=== PATIENT | male | born 1965 | race Caucasian/White ===

== ENCOUNTER 2016-08-11 13:56 | Emergency (ER) | payer OTHER ==
[2016-08-11 14:00] VITALS: BP 154/94; PULSE 96; TEMP 98; BMI 25.5
[2016-08-11] MEDS ORDERED: IBUPROFEN 600 MG TABLET (FP) PO ONE ×2 (15:57→16:00)
--- NOTE | 2016-08-11 16:01 | PDOC ---
History of Present Illness - General Chief Complaint: Injury Stated Complaint: FALL, PAIN Time Seen by Provider: 08/11/16 15:41 History Source: Patient Exam Limitations: No Limitations - History of Present Illness Initial Comments: 08/11/16 15:58 Pt. on fasttrack tracker noted after pt here for 1 hr 43 minutes not on this tracker prior My chief complaint: Fall this morning hitting her left ribs left rib pain History of present illness: Patient is a 50-year-old male with no significant medical problems here today after patient fell going down stairs at 5 AM to take out the garbage due to his slipper falling off his foot causing him to fall into the stairs hitting the his left mid lateral rib area. Patient reports that area continues to be painful, with no shortness of breath pain is worse with deep breathing or movement and is currently an 8 out of 10. Patient has not taken anything for pain. Patient denies hitting his head or any other injuries. Occurred: reports: this morning Severity: reports: moderate Pain Location: reports: other (left lateral mid rib area) Method of Injury: Yes: fall Modifying Factors: improves with: immobilization Loss of Consciousness: no loss of consciousness Associated Symptoms (Fall): denies symptoms Past History - Past Medical History Allergies/Adverse Reactions: Allergies Allergy/AdvReac Type Severity Reaction Status Date / Time esomeprazole magnesium Allergy Verified 08/11/16 14:00 [From Nexium] Home Medications: Ambulatory Orders No Home Medications 0 dose .ROUTE UTDICT 11/21/12 Oxycodone HCl/Acetaminophen [Percocet 5-325 mg Tablet] 1 tab PO HS PRN #5 tablet MDD 1 08/11/16 - Surgical History Appendectomy: Yes - Psycho/Social/Smoking Cessation Hx Suicidal Ideation: No Smoking Status: No Smoking History: Never smoked Number of Cigarettes Smoked Daily: 0 Information on smoking cessation initiated: No Hx Alcohol Use: Yes Drug/Substance Use Hx: No Substance Use Type: Alcohol Hx Substance Use Treatment: No Review of Systems - Review of Systems Able to Perform ROS?: Yes Constitutional: No: Symptoms Reported HEENTM: No: Symptoms Reported Respiratory: No: Symptoms reported Cardiac (ROS): No: Symptoms Reported ABD/GI: No: Symptoms Reported : No: Symptoms Reported Musculoskeletal: Yes: Joint Pain (left mid lateral rib pain ). No: Joint Swelling Integumentary: No: Symptoms Reported Neurological: No: Symptoms reported *Physical Exam - Vital Signs Last Vital Signs Temp Pulse Resp BP Pulse Ox 98 F 96 H 18 154/94 97 08/11/16 13:57 08/11/16 13:57 08/11/16 13:57 08/11/16 13:57 08/11/16 13:57 - Physical Exam General Appearance: Yes: Appropriately Dressed Respiratory/Chest: positive: Lungs Clear, Normal Breath Sounds. negative: Chest Tender, Respiratory Distress Cardiovascular: positive: Regular Rhythm, Regular Rate, S1, S2 Musculoskeletal: positive: Other (left mid lateral rib pain ). negative: CVA Tenderness, CVA Tenderness (R), CVA Tenderness (L), Vertebral Tenderness Extremity: positive: Normal Capillary Refill, Normal Inspection, Normal Range of Motion Integumentary: positive: Normal Color Neurologic: positive: Fully Oriented, Alert, Normal Response, Respond to painful stimul, Responsive. negative: Numbness, Sensory Deficit (left lateral torso ) Medical Decision Making - Medical Decision Making 08/11/16 16:00 Patient is a 50-year-old male with no significant medical problems here today after patient fell going down stairs at 5 AM to take out the garbage due to his slipper falling off his foot causing him to fall into the stairs hitting the his left mid lateral rib area. Patient reports that area continues to be painful , with no shortness of breath pain is worse with deep breathing or movement and is currently an 8 out of 10. Patient has not taken anything for pain. Patient denies hitting his head or any other injuries. 08/11/16 16:02 Left mid lateral rib pain r/o fracture left rib RIB CONTUSION left lateral PLAN: xray left rib series no fracture noted ibuprofen 600 mg po now 08/11/16 16:03 08/11/16 16:49 08/11/16 16:58 percocet 5mg/325 mg po hs prn pain #5 *DC/Admit/Observation/Transfer Diagnosis at time of Disposition: Fall (on) (from) other stairs and steps, sequela Contusion of rib on left side Qualifiers: Encounter type: initial encounter Qualified Code(s): S20.212A - Contusion of left front wall of thorax, initial encounter - Discharge Dispostion Disposition: HOME Condition at time of disposition: Stable - Prescriptions Prescriptions: Oxycodone HCl/Acetaminophen [Percocet 5-325 mg Tablet] 1 tab PO HS PRN #5 tablet MDD 1 PRN Reason: Severe Pain - Patient Instructions Additional Instructions: Avoid any strenuous activities or sudden movements or exercise if you must cough hold a pillow in front of you than cough Return to emergency room if symptoms worsen any difficulty breathing Follow up with your primary care provider within the next few days Take ibuprofen as needed as directed by principal electrical engineer for pain Patient voiced understanding of discharge instructions and all questions were answered
== END 2016-08-11 17:09 | disposition home or self-care (01) ==
LOC: JERFT 13:56 → JER 13:56 → JERFT 17:09
DX: S20.212A Contusion of left front wall of thorax, initial encounter (principal); W10.8XXA Fall (on) (from) other stairs and steps, initial encounter; Y93.E9 Activity, other interior property and clothing maintenance; Y92.038 Other place in apartment as the place of occurrence of the external cause
CPT/HCPCS: 71101-TC; 99281-25

== ENCOUNTER 2016-08-15 21:42 | Emergency (ER) | payer OTHER ==
[2016-08-15 21:49] VITALS: BMI 25.5
[2016-08-15] MEDS ORDERED: IBUPROFEN 400 MG TABLET (FP) PO ONE ×2 (23:15→23:45)
[2016-08-15] MEDS ORDERED: CYCLOBENZAPRINE HCL 10 MG TABLET (FP) PO ONE (23:15)
[2016-08-15] MEDS ORDERED: ACETAMINOPHEN 325 MG TABLET (FP) PO ONE (23:15)
--- NOTE | 2016-08-15 23:16 | PDOC ---
History of Present Illness - General History Source: Patient Exam Limitations: No Limitations - History of Present Illness Initial Comments: 08/16/16 01:14 The patient is a 50 year old male with no significant past medical history who presents to the ED with 4 days of persistent pain to the lower rib field from mid clavicular line to mid axillary line. Patient was seen on 08/11 for left rib cage pain s/p fall, where he had an x-ray that revealed no fracture noted. He was discharged with instructions to come back if pain persisted. Patient returns today for persistent pain to the lower rib field from mid clavicular line to mid axillary line. Pain does not radiate. His pain worsens with changes in position, sitting, twisting, or lying supine. States that he attempted to apply ice to the area and take pain medications with minimal to no relief. The patient denies fever, chills, cough, SOB, chest pain, and palpitations. The patient denies nausea, vomiting, and diarrhea. Allergies: esomeprazole magnesium Social History: No alcohol, tobacco, or drug use reported. Past Surgical History: appendectomy PCP: None reported <Zee Moreno - Last Filed: 08/16/16 02:45> <Neal Pelaez - Last Filed: 08/16/16 02:50> - General Chief Complaint: Back Pain Stated Complaint: PAIN Past History <Zee Moreno - Last Filed: 08/16/16 02:45> - Surgical History Appendectomy: Yes - Psycho/Social/Smoking Cessation Hx Anxiety: No Suicidal Ideation: No Smoking Status: No Smoking History: Smoker current status UNK Have you smoked in the past 12 months: No Number of Cigarettes Smoked Daily: 0 Information on smoking cessation initiated: No Hx Alcohol Use: No Drug/Substance Use Hx: No Substance Use Type: Alcohol Hx Substance Use Treatment: No <Neal Pelaez - Last Filed: 08/16/16 02:50> - Past Medical History Allergies/Adverse Reactions: Allergies Allergy/AdvReac Type Severity Reaction Status Date / Time esomeprazole magnesium Allergy Verified 08/15/16 21:49 [From Nexium] Home Medications: Ambulatory Orders No Home Medications 0 dose .ROUTE UTDICT 11/21/12 Ibuprofen 800 mg PO TID PRN #20 tablet 08/16/16 Review of Systems - Review of Systems Able to Perform ROS?: Yes Comments:: 08/16/16 01:14 GENERAL/CONSTITUTIONAL: No fever or chills. No weakness. HEAD, EYES, EARS, NOSE AND THROAT: No change in vision. No ear pain or discharge. No sore throat. CARDIOVASCULAR: No chest pain or shortness of breath. RESPIRATORY: No cough, wheezing, or hemoptysis. GASTROINTESTINAL: No nausea, vomiting, diarrhea or constipation. GENITOURINARY: No dysuria, frequency, or change in urination. MUSCULOSKELETAL: +pain to the lower rib field from mid clavicular line to mid axillary line. No joint or muscle swelling. No neck or back pain. SKIN: No rash NEUROLOGIC: No headache, vertigo, loss of consciousness, or change in strength/ sensation. ENDOCRINE: No increased thirst. No abnormal weight change. HEMATOLOGIC/LYMPHATIC: No anemia, easy bleeding, or history of blood clots. ALLERGIC/IMMUNOLOGIC: No hives or skin allergy. <Zee Moreno - Last Filed: 08/16/16 02:45> *Physical Exam - Vital Signs Last Vital Signs Temp Pulse Resp BP Pulse Ox 98.2 F 70 18 154/102 99 08/15/16 21:46 08/15/16 21:46 08/15/16 21:46 08/15/16 21:46 08/15/16 21:46 - Physical Exam Comments: 08/16/16 01:14 GENERAL: Awake, alert, and fully oriented, in no acute distress HEAD: No signs of trauma EYES: PERRLA, EOMI, sclera anicteric, conjunctiva clear ENT: Auricles normal inspection, hearing grossly normal, nares patent, oropharynx clear without exudates. Moist mucosa NECK: Normal ROM, supple, no lymphadenopathy, JVD, or masses LUNGS: Patient moving air comfortably. Breath sounds equal, clear to auscultation bilaterally. No wheezes, and no crackles HEART: Regular rate and rhythm, normal S1 and S2, no murmurs, rubs or gallops ABDOMEN: Soft, nontender, normoactive bowel sounds. No guarding, no rebound. No masses EXTREMITIES: Normal range of motion, no edema. No clubbing or cyanosis. No cords, erythema, or tenderness MUSCULOSKELETAL: Pain to palpation to the lower rib field from mid clavicular line to mid axillary line. No crepitus, no gross deformity, no bruising, no ecchymosis, no edema, no erythema, no splinting. NEUROLOGICAL: Cranial nerves II through XII grossly intact. Normal speech, normal gait SKIN: Warm, Dry, normal turgor, no rashes or lesions noted. <Zee Moreno - Last Filed: 08/16/16 02:45> - Vital Signs Last Vital Signs Temp Pulse Resp BP Pulse Ox 98.2 F 70 18 154/102 99 08/15/16 21:46 08/15/16 21:46 08/15/16 21:46 08/15/16 21:46 08/15/16 21:46 <Neal Pelaez - Last Filed: 08/16/16 02:50> ED Treatment Course - RADIOLOGY Radiograph Interpretation: 08/16/16 02:45 EXAM: CT chest without contrast and CT abdomen without contrast Reviewed by Imaging mission analyst: FINDINGS: Images were obtained from the lung apices to the aortoiliac bifurcation. Chest: Negative for thoracic/pulmonary injury. No pneumothorax or pneumomediastinum. No pulmonary infiltrates/ contusions. No pleural effusions. Thoracic cage is normal. Abdomen: Generally limited for trauma without intravenous contrast. The spleen appears intact within the range of resolution of noncontrast CT. Fatty liver. No liver injury. Normal pancreas. Normal gallbladder. Normal adrenal glands. Normal kidneys. Visualized portion of the bowel is normal. No upper abdominal free fluid or blood. - Medications Given in the ED: ED Medications Discontinued Medications Generic Name Dose Route Start Last Admin Trade Name Freq PRN Reason Stop Dose Admin Acetaminophen 975 mg 08/15/16 23:15 08/15/16 23:49 Tylenol - PO 08/15/16 23:16 975 mg ONCE ONE Administration Cyclobenzaprine HCl 10 mg 08/15/16 23:15 08/15/16 23:49 Flexeril - PO 08/15/16 23:16 10 mg ONCE ONE Administration Ibuprofen 800 mg 08/15/16 23:15 08/15/16 23:49 Motrin - PO 08/15/16 23:16 800 mg ONCE ONE Administration <Zee Moreno - Last Filed: 08/16/16 02:45> Medical Decision Making - Medical Decision Making 08/16/16 00:32 50yo M with persistent LUQ/LLL pain 4 days s/p mechanical slip and fall. He appears comfortable and has normal vitals and PE. He will be given CT chest to include the spleen however, splenic inujury is very unlikely given his clinical picture and the mechanism of injury. Will encourage close follow up; will give incentive spirometer. Also, will encourage adequate analgesia with appropriate weight based NSAIDs. No narcotics indicated. 08/16/16 02:43 CT is negative; spleen is unremarkable in this noncontrast study. He is given instruction to follow up with the PMD within 24 hours. <Neal Pelaez - Last Filed: 08/16/16 02:50> *DC/Admit/Observation/Transfer - Attestations Scribe Attestion: 08/16/16 01:14 Documentation prepared by Zee Moreno, acting as medical anthropologist for Neal Pelaez MD, MD <Zee Moreno - Last Filed: 08/16/16 02:45> - Discharge Dispostion Admit: No Decision to Admit order Date/Time: 08/16/16 00:28 - Attestations Physician Attestion: 08/16/16 00:32 08/16/16 00:32 I, Dr. Neal Pelaez MD, attest that this document has been prepared under my direction and personally reviewed by me in its entirety. I further attest, that it accurately reflects all work, treatment, procedures and medical decision -making performed by me. <Neal Pelaez - Last Filed: 08/16/16 02:50> Diagnosis at time of Disposition: Contusion of rib Qualifiers: Encounter type: subsequent encounter Laterality: left Qualified Code(s): S20.212D - Contusion of left front wall of thorax, subsequent encounter - Discharge Dispostion Disposition: HOME Condition at time of disposition: Guarded - Prescriptions Prescriptions: Ibuprofen 800 mg PO TID PRN #20 tablet PRN Reason: Pain - Referrals Referrals: STAFF,NOT ON [Primary Care Provider] - - Patient Instructions Additional Instructions: Please follow up with your PMD within the next 48 hours for reevaluation and if there is any change otherwise in your symptoms, please return immediately to the ED.
[2016-08-15] MEDS ORDERED: ACETAMINOPHEN 325 MG TABLET (FP) ONE (23:44)
[2016-08-15] MEDS ORDERED: CYCLOBENZAPRINE HCL 10 MG TABLET (FP) ONE (23:45)
[2016-08-16 02:59] VITALS: BP 151/87; PULSE 72; TEMP 97.9
== END 2016-08-16 02:58 | disposition home or self-care (01) ==
LOC: SUPCPDRO 21:42 → JER 21:42
DX: S20.212D Contusion of left front wall of thorax, subsequent encounter (principal); W18.39XD Other fall on same level, subsequent encounter; Y92.9 Unspecified place or not applicable
CPT/HCPCS: 71250-TC; 99281-25

== ENCOUNTER 2019-05-15 09:36 | Emergency (ER) | payer OTHER ==
[2019-05-15 09:45] VITALS: BP 118/71; PULSE 87; TEMP 99.6; BMI 22.9
--- NOTE | 2019-05-15 10:22 | PDOC ---
History of Present Illness - General Chief Complaint: Cold Symptoms Stated Complaint: SORE THROAT/COUGHING/FEVER Time Seen by Provider: 05/15/19 09:48 History Source: Patient Exam Limitations: No Limitations - History of Present Illness Initial Comments: 05/15/19 10:10 Patient is a 53-year-old male with history of GERD and psychiatric history, who presents to the ED with complaint of cough, sore throat, fever, nausea, vomiting for the last 8 days. He states he only vomited the first and second days but still feels nauseated. He states his T-max was 102F. He denies any shortness of breath. He does admit to cough with some sputum production. Past History - Past Medical History Allergies/Adverse Reactions: Allergies Allergy/AdvReac Type Severity Reaction Status Date / Time esomeprazole magnesium Allergy Verified 05/15/19 09:42 [From Nexium] Home Medications: Ambulatory Orders NK [No Known Home Medication] 05/15/19 COPD: No - Surgical History Appendectomy: Yes - Immunization History Immunization Up to Date: Yes - Psycho Social/Smoking Cessation Hx Smoking Status: No Smoking History: Never smoked Have you smoked in the past 12 months: No Number of Cigarettes Smoked Daily: 0 Hx Alcohol Use: No Drug/Substance Use Hx: No Substance Use Type: Alcohol Hx Substance Use Treatment: No Review of Systems - Review of Systems Comments:: 05/15/19 10:22 - Review of Systems Able to Perform ROS?: Yes Constitutional: No: Night Sweats, Weakness, Positive: Fever, Chills, Loss of Appetite HEENTM: No: Eye Pain, Vision changes, Ear Pain, Throat Swelling, Mouth Pain, Difficulty Swallowing, Positive: Throat Pain Respiratory: No: Shortness of Breath, Wheezing, Sputum Production, Positive: Cough Cardiac (ROS): No: Chest Pain, Chest Tightness, Palpitations, Irregular Heart Beat, Edema ABD/GI: No: Abdominal Pain, Diarrhea, Positive: Nausea, Vomiting : No Dysuria, No Hematuria, No Frequency, No Urgency Musculoskeletal: No: Muscle Pain, Back Pain, Joint Pain, Muscle Weakness, Neck Pain Integumentary: No: Lesions, Rash Neurological: No: Headache, Numbness, Tingling, Weakness, Speech Difficulties *Physical Exam - Vital Signs Last Vital Signs Temp Pulse Resp BP Pulse Ox 99.6 F 87 18 118/71 100 05/15/19 09:43 05/15/19 09:43 05/15/19 09:43 05/15/19 09:43 05/15/19 09:43 - Physical Exam 05/15/19 10:25 - Physical Exam General Appearance: Nourished, Appropriately Dressed, Mild distress secondary to general unwell feeling HEENT: EOMI, Normal Voice, No Pharyngeal Erythema, No Muffled/Hoarse voice, No Tonsillar Exudate, No Tonsillar Erythema, No Nasal Congestion, No Rhinorrhea, Hearing Grossly Normal, TMs Normal, No TM Bulging, No TM Dullness, No TM Erythema Neck: Supple, No Lymphadenopathy (R), No Lymphadenopathy (L), No Rigidity, No Decreased range of motion Respiratory/Chest: Lungs Clear, Normal Breath Sounds. No Respiratory Distress, No Accessory Muscle Use Cardiovascular: Regular Rhythm, Regular Rate, S1, S2 Gastrointestinal/Abdominal: Normal Bowel Sounds, Soft. Non-tender, No Guarding , No Rebound, No Rigidity Musculoskeletal: Normal Inspection. No Decreased Range of Motion Extremity: Normal Capillary Refill, Normal Inspection Integumentary: Normal Color, Dry. No Rash Neurologic: programmer engineering and scientific II-XII NML intact, Fully Oriented, Alert, Normal Mood/Affect, Normal Response ED Treatment Course - ADDITIONAL ORDERS Additional order review: 05/15/19 10:56 Laboratory Tests 05/15/19 05/15/19 10:03 10:03 Influenza A (Rapid) Positive A Influenza B (Rapid) Negative Group A Strep Rapid Negative Medical Decision Making - Medical Decision Making 05/15/19 10:56 Patient has been made aware that he has influenza A virus. Since the patient is 8 days out from his symptoms starting, he is not a candidate for Tamiflu. He has been encouraged to continue Tylenol and ibuprofen alternating to help with fevers and body aches. He is to get plenty of rest and drink plenty of fluids. He understands and agrees with this treatment plan and he is stable for discharge. Discharge - Discharge Information Problems reviewed: Yes Clinical Impression/Diagnosis: Influenza A Condition: Stable Disposition: HOME - Follow up/Referral Referrals: ON STAFF,NOT [Primary Care Provider] - - Patient Discharge Instructions Patient Printed Discharge Instructions: DI for Influenza -- Adult Additional Instructions: Get plenty of rest and drink plenty of fluids. Take Tylenol and ibuprofen for fevers or body aches. Follow-up with your primary doctor within 1 to 2 days for repeat evaluation. - Post Discharge Activity
== END 2019-05-15 11:21 | disposition home or self-care (01) ==
LOC: JERFT 09:36
DX: J09.X2 Influenza due to identified novel influenza A virus with other respiratory manifestations (principal); Z88.8 Allergy status to other drugs, medicaments and biological substances; K21.9 Gastro-esophageal reflux disease without esophagitis; F99 Mental disorder, not otherwise specified
CPT/HCPCS: 87070; 87077; 87804; 87880; 99282-25